=== PATIENT | female | born 1970 | race Caucasian/White ===

== ENCOUNTER 2018-08-22 05:38 | Day surgery (SDC) | payer BC, OTHER ==
[~2018-08-22] VITALS: Ht 167.6 cm; Wt 78.5 kg
[2018-08-22] MEDS ORDERED: LACTATED RINGERS 1,000 ML IV SCH (06:00)
[2018-08-22 06:13] VITALS: BP 116/82
[2018-08-22] MEDS ORDERED: NONE PER PT (06:18)
[2018-08-22] MEDS ORDERED: MIDAZOLAM 1 MG/ML, 2ML ONE (07:03)
[2018-08-22] MEDS ORDERED: FENTANYL PF 100 MCG/2ML ONE ×2 (07:03→09:01)
[2018-08-22] MEDS ORDERED: SCOPOLAMINE PATCH, 1.5MG PATCH.TD72 TD ONE ×2 (07:05→07:30)
[2018-08-22] MEDS ORDERED: PROPOFOL 10 MG/ML, 20ML ONE (07:12)
[2018-08-22] MEDS ORDERED: DEXAMETHASONE 4 MG/ML, 1ML ONE (07:12)
[2018-08-22] MEDS ORDERED: CEFAZOLIN 1,000 MG ONE (07:12)
[2018-08-22] MEDS ORDERED: ONDANSETRON 2MG/ML, 2ML ONE ×2 (07:12→07:28)
[2018-08-22] MEDS ORDERED: KETOROLAC 30 MG/1 ML ONE (07:28)
[2018-08-22] MEDS ORDERED: MEPERIDINE/PF 25MG/0.5ML IVPush PRN (08:00)
[2018-08-22] MEDS ORDERED: PROCHLORPERAZINE 5 MG/ML, 2ML IV PRN (08:00)
[2018-08-22] MEDS ORDERED: DIAZEPAM 5 MG/ML, 2ML IVPush PRN (08:00)
[2018-08-22] MEDS ORDERED: OXYcodone 5 MG/5 ML ORAL.SOL UDC PO PRN (08:00)
[2018-08-22] MEDS ORDERED: ONDANSETRON 2MG/ML, 2ML IV PRN (08:00)
[2018-08-22] MEDS ORDERED: ONDANSETRON ODT 8 MG PO PRN (08:00)
[2018-08-22] MEDS ORDERED: ACETAMINOPHEN 325 MG TABLET PO PRN (08:00)
[2018-08-22] MEDS ORDERED: MORPHINE SULFATE 4 MG/ML, 1ML IVPush PRN (08:00)
[2018-08-22] MEDS ORDERED: OMNIPAQUE 350 MG/ML, 50 ML BOTTLE IV ONE (08:04)
[2018-08-22] MEDS ORDERED: PHENAZOPYRIDINE 200 MG TABLET ONE (08:50)
[2018-08-22] MEDS ORDERED: OXYcodone/APAP 5/325MG TABLET PO PRN (09:00)
[2018-08-22] MEDS ORDERED: PHENAZOPYRIDINE 200 MG TABLET PO ONE (09:00)
[2018-08-22] MEDS ORDERED: KETOROLAC 30 MG/1 ML IV PRN (09:00)
[2018-08-22] MEDS ORDERED: OXYcodone 5 MG/5 ML ORAL.SOL UDC ONE (09:01)
[2018-08-22] MEDS: FENTANYL PF 100 MCG/2ML IV PRN ×2 (09:04→09:23)
[2018-08-22] MEDS ORDERED: OMNIPAQUE 350 MG/ML, 50 ML BOTTLE ONE (09:08)
== END 2018-08-22 11:30 | disposition home or self-care (01) ==
LOC: OUT 05:38
PROVIDERS: ATTEND Urology
DX: N20.1 Calculus of ureter (principal); Z72.89 Other problems related to lifestyle; Z88.0 Allergy status to penicillin; Z98.890 Other specified postprocedural states; Z90.710 Acquired absence of both cervix and uterus; Z90.722 Acquired absence of ovaries, bilateral
CPT/HCPCS: 52356; 74420; 82360; 88300; C1769; C2617; J0690; J1100; J1885; J2250; J2405; J2704; J3010; J7120; Q9967